=== PATIENT | female | born 1990 | race Hispanic/Latino ===

== ENCOUNTER 2020-10-06 14:54 | Emergency (ER) | payer SELFPAY ==
[~2020-10-06] VITALS: Ht 170.2 cm; Wt 68.5 kg
[2020-10-06] MEDS ORDERED: BACTRIM DS TAB1 EACH PO (15:47)
== END 2020-10-06 16:17 | disposition home or self-care (01) ==
LOC: FSED 15:30
DX: R10.11 Right upper quadrant pain (principal); R30.0 Dysuria; N39.0 Urinary tract infection, site not specified
CPT/HCPCS: 81003; 81025; 99283